=== PATIENT | male | born 1960 | race Caucasian/White ===

== ENCOUNTER 2016-12-18 16:39 | Emergency (ER) | payer OTHER ==
[2016-12-18 16:55] VITALS: BP 156/95
--- NOTE | 2016-12-18 17:48 | UC ---
Dental HPI - HPI Summary HPI Summary: 4 days of dental pain with progressive swelling in a lower tooth which has been broken off for some months. - History of Current Complaint Chief Complaint: UCDentalProblem Stated Complaint: TOOTH PAIN Time Seen by Provider: 12/18/16 17:46 Hx Obtained From: Patient Onset/Duration: Gradual Onset, Lasting Days - 4 Severity: Severe Pain Intensity: 8 Pain Scale Used: 0-10 Numeric Aggravating: Cold, Chewing Alleviating: OTC Meds Related History: Swelling - right cheek - Allergies/Home Medications Allergies/Adverse Reactions: Allergies Allergy/AdvReac Type Severity Reaction Status Date / Time No Known Allergies Allergy Verified 12/18/16 16:55 PMH/Surg Hx/FS Hx/Imm Hx - Additional Past Medical History Additional PMH: obese Previously Healthy: Yes Endocrine History Of: Denies: Diabetes, Thyroid Disease Cardiovascular History Of: Denies: Cardiac Disorders, Hypertension Respiratory History Of: Reports: Asthma Denies: COPD GI/ History Of: Denies: Ulcer - Surgical History Surgical History: None - Family History Known Family History: Positive: Diabetes, Other - mother of pancreatic cancer - Social History Occupation: Employed Full-time - web design Alcohol Use: Rare Substance Use Type: None Smoking Status (MU): Never Smoked Tobacco - Immunization History Most Recent Tetanus Shot: utd Review of Systems Constitutional: Fever - low grade ENT: Dental Pain Neurological: Headache - diffuse All Other Systems Reviewed And Are Negative: Yes Physical Exam Triage Information Reviewed: Yes Appearance: Pain Distress - moderate, Obese Vital Signs: Initial Vital Signs Temp 99.6 F 12/18/16 16:50 Pulse 74 12/18/16 16:50 Resp 16 12/18/16 16:50 BP 156/95 12/18/16 16:50 Pulse Ox 95 12/18/16 16:50 Vital Signs Reviewed: Yes Eye Exam: Normal Eyes: Positive: Conjunctiva Clear ENT: Positive: Pharynx normal Dental: Positive: Gross Decay/Caries @ - lower right molar, broken tooth with abscess. Cheek is swollen and tender to the touch. Neck: Positive: Supple, Nontender, No Lymphadenopathy Respiratory: Positive: Lungs clear, Normal breath sounds Cardiovascular: Positive: RRR, No Murmur Musculoskeletal Exam: Normal Neurological Exam: Normal Psychological Exam: Normal Skin Exam: Normal Dental Complaint Course/Dx - Course Course Of Treatment: penicillin for dental abscess. increase iburpofen to max of 2400mg per day, and use hydrocodone as needed. Search of [facility] # [id number] showed no other rx's for controlled substances. - Differential Dx/Diagnosis Differential Diagnosis/Dx: Dental Abscess Provider Diagnoses: dental abscess Discharge - Discharge Plan Condition: Stable Disposition: HOME Prescriptions: HYDROcodone/ACETAMIN 5-325 MG* [[place] 5-325 TAB*] 1 tab PO Q6H PRN #20 tab MDD 4 PRN Reason: Pain (Dental) Penicillin VK TAB 500 MG(NF) 500 mg PO QID #30 tab Patient Education Materials: Dental Abscess (ED) Referrals: Mingo Meyers MD [Primary Care Provider] - Additional Instructions: increase use of ibuprofen to 600mg 4 times per day, and use hydrocodoen as needed for sleep and additional pain control. Use penicillin 4 times daily as directed, with dental visit 12/20 as arranged.
== END 2016-12-18 18:15 | disposition home or self-care (01) ==
LOC: UCCORT 16:39
DX: K04.7 Periapical abscess without sinus (principal)
CPT/HCPCS: 99212; G0463

== ENCOUNTER 2017-03-13 08:35 | Emergency (ER) | payer OTHER ==
[2017-03-13 08:57] VITALS: BP 164/87
--- NOTE | 2017-03-13 09:12 | UC ---
Respiratory Complaint HPI - HPI Summary HPI Summary: cough, congestion, low grade fever two days. - History of Current Complaint Chief Complaint: UCGeneralIllness Stated Complaint: COUGH FEVER Time Seen by Provider: 03/13/17 09:08 Hx Obtained From: Patient Onset/Duration: Gradual Onset Timing: Constant Severity Initially: Moderate Severity Currently: Moderate Character: Cough: Nonproductive Aggravating Factors: Nothing Alleviating Factors: Nothing Associated Signs And Symptoms: Positive: Fever, URI, Nasal Congestion, Hoarseness. Negative: Dyspnea, Chills, Pleuritic Chest Pain, Wheezing, Calf Pain, Calf Swelling, Edema - Risk Factors Pulmonary Embolism Risk Factors: Negative Cardiac Risk Factors: Negative - Allergies/Home Medications Allergies/Adverse Reactions: Allergies Allergy/AdvReac Type Severity Reaction Status Date / Time No Known Allergies Allergy Verified 03/13/17 08:57 Home Medications: Home Medications Acetaminophen [Extra Strength Acetaminop] 1,500 mg PO Q6HR PRN 03/13/17 [ History Confirmed 03/13/17] Budesonide/Formote 160/4.5(NF) [Symbicort 160/4.5 (NF)] 2 puff INH BID 03/13/17 [History Confirmed 03/13/17] PMH/Surg Hx/FS Hx/Imm Hx Endocrine History Of: Denies: Diabetes, Thyroid Disease Cardiovascular History Of: Reports: Hypertension - Borderline Denies: Cardiac Disorders Respiratory History Of: Reports: Asthma Denies: COPD GI/ History Of: Denies: Ulcer - Surgical History Surgical History: None - Family History Known Family History: Positive: Diabetes, Other - mother of pancreatic cancer - Social History Occupation: Employed Full-time Alcohol Use: None Substance Use Type: None Smoking Status (MU): Never Smoked Tobacco - Immunization History Most Recent Influenza Vaccination: Not UTD Most Recent Tetanus Shot: utd Review of Systems All Other Systems Reviewed And Are Negative: Yes Physical Exam Triage Information Reviewed: Yes Appearance: Well-Appearing, No Pain Distress, Well-Nourished Vital Signs: Initial Vital Signs Temp 97.9 F 03/13/17 08:52 Pulse 74 03/13/17 08:52 Resp 20 03/13/17 08:52 BP 164/87 03/13/17 08:52 Pulse Ox 97 03/13/17 08:52 Vital Signs Reviewed: Yes Eyes: Positive: Conjunctiva Clear. Negative: Conjunctiva Inflamed ENT Exam: Normal ENT: Positive: Pharynx normal, Pharyngeal erythema, Nasal congestion, Nasal drainage, TMs normal. Negative: TM bulging, TM dull, TM red, Tonsillar swelling , Tonsillar exudate, Trismus, Muffled/hoarse voice Neck: Positive: Supple, Nontender, No Lymphadenopathy, Nuchal Rigidity Respiratory: Positive: Chest non-tender, Lungs clear, Normal breath sounds, No respiratory distress, No accessory muscle use. Negative: Respiratory distress, Decreased breath sounds, Accessory muscle use, Crackles, Rhonchi, Stridor Cardiovascular Exam: Normal Cardiovascular: Positive: RRR, No Murmur, Pulses Normal, Brisk Capillary Refill Abdomen Description: Positive: Nontender, No Organomegaly, Soft Musculoskeletal Exam: Normal Musculoskeletal: Positive: Strength Intact, ROM Intact, No Edema Neurological Exam: Normal Neurological: Positive: Alert, Muscle Tone Normal, Fatigued Psychological Exam: Normal Psychological: Positive: Normal Response To Family Skin Exam: Normal Skin: Negative: rashes UC Diagnostic Evaluation - Laboratory O2 Sat by Pulse Oximetry: 97 Respiratory Course/Dx - Differential Dx/Diagnosis Differential Diagnosis/HQI/PQRI: Airway Obstruction, Foreign Body, Aspiration, Bronchitis, Pulmonary Edema, Exacerbation Of COPD, Influenza, Laryngitis, Lower Resp Infection, Pneumothorax, Pulmonary Embolism, SARS, Sinusitis Provider Diagnoses: acute bronchitis. Discharge - Discharge Plan Condition: Good Disposition: HOME Prescriptions: Azithromycin TAB* [Zithromax TAB (Z-MARYCRUZ) 250 mg #6 tabs] 2 tab PO .TODAY, THEN 1 DAILY #1 marycruz Benzonatate CAP* [Tessalon 100 MG CAP*] 100 mg PO TID PRN #20 cap PRN Reason: Cough Patient Education Materials: Acute Bronchitis (ED) Referrals: Mingo Meyers MD [Primary Care Provider] - If Needed
== END 2017-03-13 09:16 | disposition home or self-care (01) ==
LOC: UCCORT 08:35
DX: J20.9 Acute bronchitis, unspecified (principal); I10 Essential (primary) hypertension
CPT/HCPCS: 99213; G0463

== ENCOUNTER 2019-05-06 15:08 | Emergency (ER) | payer OTHER ==
[2019-05-06 16:08] VITALS: BP 147/88
--- NOTE | 2019-05-06 16:28 | UC ---
Hand/Wrist HPI - HPI Summary HPI Summary: 58 y/o male presents to the urgent care c/o This afternoon the pt put his hand down to boost him self up and twisted his right wrist. - History Of Current Complaint Chief Complaint: UCUpperExtremity Stated Complaint: RIGHT WRIST INJURY Time Seen by Provider: 05/06/19 16:13 Hx Obtained From: Patient Pain Intensity: 4 - Allergies/Home Medications Allergies/Adverse Reactions: Allergies Allergy/AdvReac Type Severity Reaction Status Date / Time No Known Allergies Allergy Verified 05/06/19 16:08 PMH/Surg Hx/FS Hx/Imm Hx - Surgical History Surgical History: None - Family History Known Family History: Positive: Diabetes, Other - mother of pancreatic cancer - Social History Alcohol Use: None Substance Use Type: None Smoking Status (MU): Never Smoked Tobacco - Immunization History Most Recent Influenza Vaccination: Not UTD Most Recent Tetanus Shot: utd Physical Exam - Summary Physical Exam Summary: Vital Signs Reviewed: Yes General: Well-Appearing, No Pain Distress, Well-Nourished obese male adolescent w/o any apparent distress Eyes: Positive: Conjunctiva Clear - PERRLA, EOMI ENT: Positive: Normal ENT inspection, Hearing grossly normal, Pharynx normal, TMs normal, Uvula midline Neck: Positive: Supple, Nontender, No Lymphadenopathy Respiratory: Positive: Chest non-tender, Lungs clear, Normal breath sounds, No respiratory distress Cardiovascular: Positive: RRR, No Murmur, Pulses Normal, Brisk Capillary Refill Abdomen Description: Positive: Nontender, No Organomegaly, Soft. Negative: CVA Tenderness (R), CVA Tenderness (L) Bowel Sounds: Positive: Present Musculoskeletal: Positive: Strength Intact, Other: Neurological Exam: Normal Musculoskeletal: Positive: Wrist: the R wrist is without obvious asymmetry or deformity when compared to the L wrist. No surface trauma, open wounds, swelling, or obvious deformity. No overlying erythema or warmth. No bony crepitus. Point tenderness over the thenar eminence and ventral side of wrist. No scaphoid fullness or tenderness to direct palpation or axial load. Decreased ROM due to pain. Motor/sensory function of ulnar, radial, median nerves intact. Ulnar and radial pulses intact. Negative Phalens/Tinels sign ( carpal tunnel syndrome). Negative Raul test (De Quervain's tenosynovitis ). Psychological Exam: Normal Skin Exam: Normal Triage Information Reviewed: Yes Vital Signs: Initial Vital Signs Temp 98.1 F 05/06/19 16:04 Pulse 74 05/06/19 16:04 Resp 16 05/06/19 16:04 BP 147/88 05/06/19 16:04 Pulse Ox 96 05/06/19 16:04 Hand/Wrist Course/Dx - Differential Dx/Diagnosis Differential Diagnosis/HQI/PQRI: Contusion, Fracture, Sprain, Strain, Tendonitis , Tenosynovitis Provider Diagnosis: Right wrist sprain, Uncontrolled hypertension Discharge - Sign-Out/Discharge Documenting (check all that apply): Patient Departure - D/C home All imaging exams completed and their final reports reviewed: Yes - Discharge Plan Condition: Stable Disposition: HOME Patient Education Materials: Wrist Sprain (ED) Referrals: Andrew Guzman DO [Primary Care Provider] - 1 Week Chandra Burnette MD [Medical Doctor] - 1 Week Additional Instructions: 1-Please take Ibuprofen PO q6-8hrs prn after meals as directed to alleviate pain and swelling. 2-Please apply ice, keep your wrist immobilized with the splint. Avoid heavy lifting or strenuous exercise. 3- Please f/u with Orthopedic Dr Burnette or your PCP in 1 week is not improvement of symptoms for further evaluation and treatment. 4- Your BP is elevated today. please decrease salt in your diet, monitor BP and if it continues to be elevated please f/u with your PCP for further management. - Billing Disposition and Condition Condition: STABLE Disposition: Home
[2019-05-06] MEDS ORDERED: Ibuprofen TAB* 400 MG PO ONE (17:09)
== END 2019-05-06 17:26 | disposition home or self-care (01) ==
LOC: UCCORT 15:08
DX: S63.501A Unspecified sprain of right wrist, initial encounter (principal); I10 Essential (primary) hypertension; X50.9XXA Other and unspecified overexertion or strenuous movements or postures, initial encounter
CPT/HCPCS: 99213; A9270-GY; G0463